=== PATIENT | female | born 1940 | race Caucasian/White ===

== ENCOUNTER → 2025-06-30 15:00 | Outpatient (REF) | payer OTHER, SELFPAY | LOC: RAD 15:00 | PROVIDERS: ATTENDING PHYSICIAN Nurse Practitioner Adult Health; FAMILY PHYSICIAN Internal Medicine | DX: M25.551 Pain in right hip (principal); M54.16 Radiculopathy, lumbar region; M79.18 Myalgia, other site; M54.50 Low back pain, unspecified | CPT/HCPCS: 72110; 73502 ==